=== PATIENT | male | born 1950 | race Caucasian/White ===

== ENCOUNTER 2016-10-02 16:35 | Emergency (ER) | payer MEDICARE, OTHER ==
[~2016-10-02] VITALS: Wt 81.0 kg
[2016-10-02] MEDS ORDERED: SOD CHLORIDE 0.9% 500 ML IV STA (17:21)
[2016-10-02] MEDS ORDERED: FAMOTIDINE 20 MG INJ IV ONE (17:30)
[2016-10-02] MEDS ORDERED: DICYCLOMINE 10 MG CAP PO ONE (17:30)
[2016-10-02 17:45] LABS: ADD SCAN DIFF NO
[2016-10-02] MEDS ORDERED: FLUO20CA22 PO (17:46)
[2016-10-02] MEDS ORDERED: CETI10CA PO (17:47)
[2016-10-02] MEDS ORDERED: FER325 PO (17:47)
[2016-10-02] MEDS ORDERED: ONDA4TAB11 PO (17:47)
[2016-10-02] MEDS ORDERED: HYDR-3012 PO (17:47)
--- NOTE | 2016-10-02 17:47 | ERD ---
ER Documentation Chief Complaint Date/Time DATE: 10/02/16 TIME: 17:46 Chief Complaint ABD PAIN UNCLEAR FOR HOW LONG WITH DEPRESSION PER HPI 66-year-old male who presents to the emergency room with greater than 2 years of abdominal pain. The patient has describes epigastric and periumbilical abdominal cramping for approximately 2 years. He reports an ER visit in the past with labs and CAT scan he reports endoscopy and colonoscopy 2 years ago. The patient also has a depressed mood but no suicidal thoughts. His symptoms have not changed, unclear what triggered his visit to the emergency room. No fevers or chills nausea vomiting, normal bowel movements. No hematochezia. ROS All systems reviewed and are negative except as per history of present illness. Medications Home Meds Active Scripts Dicyclomine Hcl* (Bentyl*) 10 Mg Capsule, 10 MG PO QID Y for abdominal cramping , #30 CAP Prov:JOSR ALBERTO MD 10/02/16 Famotidine* (Pepcid*) 20 Mg Tablet, 20 MG PO BID for 30 Days, TAB Prov:JOSR ALBERTO MD 10/02/16 Reported Medications Nystatin (Nystatin) 100,000 Unit/1 Ml Oral.susp, 5 ML PO QID, #60 ML 10/02/16 Acetaminophen* (Acetaminophen*) 500 MG Extra Strength Tablet, 500 MG PO Q4H Y for PAIN AND OR ELEVATED TEMP, TAB 10/02/16 Ferrous Sulfate* (Ferrous Sulfate*) 325 Mg Tabec, 325 MG PO DAILY, TAB 10/02/16 Cetirizine Hcl* (Zyrtec*) 10 Mg Capsule, 10 MG PO DAILY, TAB 10/02/16 Ondansetron (Zofran Odt) 4 Mg Tab.rapdis, 4 MG PO TID 10/02/16 Hydroxyzine Hcl* (Hydroxyzine Hcl*) 50 Mg Tablet, 50 MG PO QHS, #40 TAB 10/02/16 Fluoxetine Hcl* (Fluoxetine Hcl*) 20 Mg Capsule, 20 MG PO DAILY, CAP 10/02/16 Allergies Allergies: Coded Allergies: No Known Allergy (Unverified , 10/02/16) Physical Exam Vitals Vital Signs Date Time Temp Pulse Resp B/P Pulse Ox O2 Delivery O2 Flow Rate FiO2 10/02/16 17:56 98.0 66 14 124/70 100 Room Air 10/02/16 16:41 98.0 64 18 110/74 99 Physical Exam General: Well developed, well nourished, no acute distress Head: Normocephalic, atraumatic. Eyes: Pupils equally reactive, EOM intact ENT: Moist mucous membranes Neck: Supple, no lymphadenopathy Respiratory: Lungs clear bilaterally, no distress Cardiovascular: RRR, no murmurs, rubs, or gallops Abdominal: Soft, non-tender, non-distended, no peritoneal signs : Deferred MSK: No edema, no unilateral swelling, 5/5 strength Neurologic: Alert and oriented, moving all extremities, normal speech, no focal weakness, no cerebellar signs Skin: No rash Psych: Normal mood Result Diagram: 10/02/16 1723 10/02/16 1723 Results 24 hrs Laboratory Tests Test 10/02/16 17:23 White Blood Count 6.710^3/ul Red Blood Count 4.0510^6/ul Hemoglobin 11.8g/dl Hematocrit 35.6% Mean Corpuscular Volume 87.9fl Mean Corpuscular Hemoglobin 29.1pg Mean Corpuscular Hemoglobin Concent 33.1g/dl Red Cell Distribution Width 13.1% Platelet Count 95301^3/UL Mean Platelet Volume 9.2fl Neutrophils % 77.8% Lymphocytes % 13.6% Monocytes % 7.3% Eosinophils % 0.9% Basophils % 0.1% Nucleated Red Blood Cells % 0.0/100WBC Neutrophils # 5.210^3/ul Lymphocytes # 0.910^3/ul Monocytes # 0.510^3/ul Eosinophils # 0.110^3/ul Basophils # 0.010^3/ul Nucleated Red Blood Cells # 0.010^3/ul Sodium Level 131mmol/L Potassium Level 4.0mmol/L Chloride Level 92mmol/L Carbon Dioxide Level 25mmol/L Anion Gap 18 Blood Urea Nitrogen 12mg/dl Creatinine 0.85mg/dl Glucose Level 112mg/dl Calcium Level 8.9mg/dl Total Bilirubin 0.4mg/dl Direct Bilirubin 0.00mg/dl Indirect Bilirubin 0.4mg/dl Aspartate Amino Transf (AST/SGOT) 156IU/L Alanine Aminotransferase (ALT/SGPT) 140IU/L Alkaline Phosphatase 131IU/L Total Protein 9.1g/dl Albumin 3.9g/dl Globulin 5.20g/dl Albumin/Globulin Ratio 0.75 Lipase 128U/L Current Medications Medications (Trade) Dose Ordered Sig/Yasemin Route PRN Reason Start Time Stop Time Status Last Admin Dose Admin Sodium Chloride (NS) 500 ml @ 500 mls/hr Q1H STAT IV 10/02/16 17:21 10/02/16 18:20 DC 10/02/16 17:40 Famotidine (Pepcid Iv) 20 mg ONCE ONCE IV 10/02/16 17:30 10/02/16 17:31 DC 10/02/16 17:40 Dicyclomine HCl (Bentyl) 10 mg ONCE ONCE PO 10/02/16 17:30 10/02/16 17:31 DC 10/02/16 17:40 Morphine Sulfate (morphine) 4 mg ONCE STAT IV 10/02/16 18:30 10/02/16 18:31 DC 10/02/16 18:45 Ondansetron HCl (Zofran Inj) 4 mg ONCE STAT IV 10/02/16 18:30 10/02/16 18:31 DC 10/02/16 18:45 Procedures/MDM EKG, MONITORS, & DIAGNOSTIC IMAGING: CT abdomen and pelvis: IMPRESSION: 1. Atherosclerosis. 2. No urinary tract calculus or hydronephrosis. 3. Normal appendix. 4. Degenerative changes of the spine. RPTAT: QQ LAB INTERPRETATION: Nonspecific transaminitis. MEDICAL DECISION MAKING: The patient presents with greater than 2 years of abdominal pain that is unchanged in character, severity. No other associated features. The patient's family does report depression. Unclear etiology at this time. The patient has had thorough evaluation including laboratory testing, CT imaging. Recent colonoscopy and endoscopy. The patient's depression may be playing a role. He exhibits no signs or symptoms concerning for acute vascular compromise. I advised the family that repeat laboratory testing and diagnostic imaging is unlikely to yield acute findings. However, they prefer to have laboratory testing and CT imaging. I will repeat this to rule out acute intra-abdominal process such as obstruction or malignancy. The patient absolutely needs to follow-up with primary care physician and GI specialist. Outpatient psychiatry referral may also be necessary. ER COURSE: The patient did report an episode of abdominal pain requiring morphine. The patient has multiple repeat abdominal exams that are benign. He received Pepcid and Bentyl and IV fluids. His laboratory testing is nonspecific with nonspecific transaminitis. No evidence of choledocholithiasis. The patient has a normal bilirubin. CT imaging of the abdomen and pelvis is negative. At this time there is no diagnosis for the patient's chronic abdominal pain. The patient is referred back to primary care physician and GI specialist. He was advised to return for any worsening symptoms. Outpatient endoscopy, colonoscopy and further follow-up for his chronic abdominal pain for greater than 2 years would be appropriate. I kept the patient and/or family informed of laboratory and diagnostic imaging results throughout the emergency room course. DISPOSITION PLAN: We discussed follow up with the patient's primary care doctor within 24 to 48 hours as needed. We also discussed return to the emergency room for worsening symptoms or worsening condition. Outpatient referral: Gastroenterology Discharge Medications: Pepcid, Bentyl Departure Diagnosis: Primary Impression: Abdominal pain Abdominal location: generalized Qualified Code: R10.84 - Generalized abdominal pain Additional Impression: Transaminitis Condition: Stable JOSR ALBERTO MD Oct 02, 2016 17:47
[2016-10-02 17:48] LABS: BASOPHILS % 0.1 % (0.0-2.0); EOSINOPHILS # 0.1 10^3/ul (0.0-0.5); EOSINOPHILS % 0.9 % (0.0-7.0); HEMATOCRIT 35.6 % (42.0-52.0); HEMOGLOBIN 11.8 g/dl (14.0-18.0); LYMPHOCYTES # 0.9 10^3/ul (0.8-2.9); LYMPHOCYTES % 13.6 % (15.0-51.0); MEAN CORPUSCULAR HEMOGLOBIN 29.1 pg (29.0-33.0); MEAN CORPUSCULAR HGB CONC 33.1 g/dl (32.0-37.0); MEAN CORPUSCULAR VOLUME 87.9 fl (82.0-101.0); MEAN PLATELET VOLUME 9.2 fl (7.4-10.4); MONOCYTE # 0.5 10^3/ul (0.3-0.9); MONOCYTES % 7.3 % (0.0-11.0); NEUTROPHIL # 5.2 10^3/ul (1.6-7.5); NEUTROPHILS % 77.8 % (39.0-77.0); PLATELET COUNT 301 10^3/UL (140-415); RED BLOOD COUNT 4.05 10^6/ul (4.70-6.10); RED CELL DISTRIBUTION WIDTH 13.1 % (11.5-14.5); WHITE BLOOD COUNT 6.7 10^3/ul (4.8-10.8)
[2016-10-02] MEDS ORDERED: ACET-141 PO (17:48)
[2016-10-02] MEDS ORDERED: NYST1000 PO (17:48)
[2016-10-02 18:00] LABS: ALBUMIN 3.9 g/dl (3.3-4.9)
[2016-10-02 18:03] LABS: ALBUMIN/GLOBULIN RATIO 0.75; BILIRUBIN,INDIRECT 0.4 mg/dl (0-1.1); BILIRUBIN,TOTAL 0.4 mg/dl (0.2-1.3); CREATININE 0.85 mg/dl (0.61-1.24); TOTAL PROTEIN 9.1 g/dl (6.1-8.1)
[2016-10-02 18:04] LABS: CALCIUM 8.9 mg/dl (8.4-10.2)
[2016-10-02] MEDS ORDERED: ONDANSETRON 4 MG INJ IV STA (18:30)
[2016-10-02] MEDS ORDERED: morphine 4 MG/ML VIAL IV STA (18:30)
--- NOTE | 2016-10-02 20:17 | RADRPT ---
PROCEDURE: CT Abdomen and Pelvis without contrast. CLINICAL INDICATION: Abdominal and pelvic pain. TECHNIQUE: CT scan of the abdomen and pelvis without contrast was performed. Coronal and sagittal reformatted images were obtained from the axial source images. Images were reviewed on a [employer] PACS workstation. Total exam DLP is 962.04 mGy-cm. CTDIvol is 15.60 mGy. One or more of the f ollowing dose reduction techniques were used: Automated exposure control, adjustment of the mA and/o r kV according to patient size, use of iterative reconstruction technique. COMPARISON: None. FINDINGS: The lung bases are normal. There is no pleural effusion. The liver is normal in size and attenuation. There is no focal hepatic lesion. The gallbladder and bile ducts are normal. The spleen is normal in size. There is no focal splenic lesion. Both adrenals are normal with no enlargement or mass. The pancreas is unremarkable with no mass or evidence of pancreatitis. There is no renal mass or hydronephrosis. There is no renal calculus or ureteral calculus. The abdominal aorta is not dilated. There is calcification in the aorta consistent with atherosclero sis. There is no retroperitoneal lymphadenopathy or mass. There is no pelvic lymphadenopathy or mass. The bladder and distal ureters are normal. The periappendiceal region is unremarkable with no evidence of appendicitis. The appendix is well se en and appears normal. The bowel and mesentery are normal. There is no free fluid or free gas. There are degenerative changes of the spine. There is no fracture or lytic lesion. IMPRESSION: 1. Atherosclerosis. 2. No urinary tract calculus or hydronephrosis. 3. Normal appendix. 4. Degenerative changes of the spine. RPTAT: QQ .Abram Wells MD, MD Date Time Electronically viewed and signed by .Abram Wells MD, MD on 10/02/2016 20:17 .R/
[2016-10-02] MEDS ORDERED: FAMO-18 PO (20:27)
[2016-10-02] MEDS ORDERED: DICY10CA60 PO (20:27)
[2016-10-02 20:40] VITALS: BP 96/58; PULSE 63; RESP 19; TEMP 98
== END 2016-10-02 20:50 | disposition home or self-care (01) ==
LOC: E/R 16:35
DX: R10.84 Generalized abdominal pain (principal); R74.0 Nonspecific elevation of levels of transaminase and lactic acid dehydrogenase [LDH]
CPT/HCPCS: 36415; 74176; 80053; 83690; 85025; 96374; 96375; 99285; J2270; J2405; J7040